=== PATIENT | female | born 1980 | race Caucasian/White ===

== ENCOUNTER 2016-09-01 15:48 | Emergency (ER) | payer OTHER ==
[~2016-09-01] VITALS: Ht 165.1 cm; Wt 76.2 kg
[~2016-09-01 15:48] MED LIST: ALBUTEROL0.09 MG/A2 IH; ATIVAN1 MG PO; BACTRIM DS 8001 TA1 PO; BIAXIN500 MG PO; CARAFATE1 G1 PO; HYDROCODONE BIT1 T11 PO; LEVOTHYROXINE0.05 MG PO; MOTRIN800 MG PO; PERCOCET 325 MG1 TA2 PO; PRILOSEC20 M1 PO; PRILOSEC40 MG PO; PYRIDIUM200 MG PO; SIMVASTATIN10 MG PO; TOPAMAX50 MG PO; TORADOL10 MG PO; ULTRAM50 MG PO; ZANTAC 150150 MG PO; ZYRTEC10 MG PO
[2016-09-01 15:57] VITALS: BP 122/73
[2016-09-01 16:19] LABS: BILIRUBIN NEGATIVE (NEGATIVE); BLOOD NEGATIVE (NEGATIVE); CLARITY CLEAR (CLEAR); COLOR YELLOW (YELLOW); GLUCOSE NEGATIVE (NEGATIVE); KETONE TRACE (NEGATIVE); LEUKO ESTERASE NEGATIVE (NEGATIVE); NITRITE NEGATIVE (NEGATIVE); PROTEIN NEGATIVE (NEGATIVE); SPECIFIC GRAVITY 1.015 (1.005-1.030); UROBILINOGEN 0.2 E.U./dl (0.2-1.0)
[2016-09-01 16:29] LABS: BACTERIA TRACE; EPITHELIAL CELLS 16-20; MUCOUS TRACE
[2016-09-01 16:30] LABS: RBC 0-2 rbc/hpf (0-2); URINE REFLEX COMMENT NO (NO)
[2016-09-01] MEDS ORDERED: PYRIDIUM100 MG PO (17:04)
[2016-09-01] MEDS ORDERED: MACROBID100 M1 PO (17:04)
[2016-09-01] MEDS ORDERED: DIFLUCAN150 MG PO (17:04)
== END 2016-09-01 17:24 | disposition home or self-care (01) ==
LOC: ED 15:48
PROVIDERS: Registered Nurse
DX: R30.0 Dysuria (principal); R03.0 Elevated blood-pressure reading, without diagnosis of hypertension; Z90.49 Acquired absence of other specified parts of digestive tract

== ENCOUNTER → 2017-01-02 | Outpatient (CLI) | payer OTHER ==
[~2017-01-02] MED LIST changes: +DIFLUCAN150 MG PO; +MACROBID100 M1 PO; +PYRIDIUM100 MG PO
[2017-01-03 22:05] LABS: LUPUS DRVVT 37.2 sec (0.0-47.0); PTT-LA 34.4 sec (0.0-43.6)
[2017-01-04 00:09] LABS: LUPUS REFLEX INTERPRETATION Comment: (.)
== END ==
LOC: LAB 14:24
PROVIDERS: Nurse Practitioner Family
DX: M79.609 Pain in unspecified limb (principal)

== ENCOUNTER → 2017-08-04 | Outpatient (CLI) | payer OTHER | END | disposition home or self-care (01) | LOC: RAD 15:39 | DX: M79.671 Pain in right foot (principal) ==

== ENCOUNTER → 2017-11-07 | Day surgery (SDC) | payer OTHER ==
[~2017-11-07] VITALS: Ht 165.1 cm; Wt 83.5 kg
[~2017-11-07] MED LIST changes: +DOXYCYCLINE100 M3 PO; +GAVISCON ES TA1 EACH PO; +GOOD NEIGHBOR150 M1 PO; +PROTONIX40 MG PO; +REGLAN5 MG PO
--- NOTE | ~2017-11-07 | O ---
[place], [place] OPERATIVE NOTE NAME: FREDY VINCENT UNIT #: [id number] ROOM: DOCTOR: DAVEY BUCIO MD BIRTHDATE: [birth year] DOS: 11/07/2017 HISTORY OF PRESENT ILLNESS: A 37-year-old patient who was presented with chief complaint of dyspepsia despite the fact that she is taking omeprazole 20 mg b.i.d. and ranitidine 150 mg 2 tablets. ALLERGIES: No known medication. PAST SURGICAL HISTORY: Cholecystectomy. PAST MEDICAL HISTORY: Reflux and migraine cephalalgia. SOCIAL HISTORY: Nonsmoker and social alcohol consumer. FAMILY HISTORY: Noncontributory. ALLERGIES: No known medication. PROCEDURE: Today's procedure part of investigation is panendoscopy plus biopsy. PREMEDICATION: Versed and Diprivan. SCOPE: Olympus forward-viewing gastroscope Q10 video. REPORT: After putting the patient in left lateral position and application of lubricant to the scope, the scope was introduced. Thereafter, under direct visualization, advanced through the length of esophagus without difficulty. Small hiatal hernia was noticed about 2 cm. Gastric pouch was entered. Gastritis seen. Duodenal bulb, second and third part within normal limit. Incompetency of the LES was also noticed. The patient extubated after antral biopsy for H. pylori. IMPRESSION: Incompetent LES, small hiatal hernia 2 cm, gastritis. PLAN AND DISCUSSION: I am going to switch her to Protonix 40 mg daily. We are going to adopt Reglan 5 mg a.c. dinner. Gaviscon 1 p.c. breakfast and 1 at bedtime. Antireflux measures with elevation of the head of the bed 10 inches all time and avoiding coffee and reassessment as an outpatient routinely with you in office, p.r.n. visit with us in [facility]. I thank you very much indeed, Ms. Sariah Blair. [place], [place] OPERATIVE NOTE NAME: FREDY VINCENT Ashley UNIT #: [id number] ROOM: DOCTOR: DAVEY BUCIO MD BIRTHDATE: [birth year] ADVEY BUCIO MD CM:OPRECORD:OPERATIVE NOTE [id number] SARIAH BUCIO MD 11/07/17 1743 interface
[2017-11-07 13:24] VITALS: BP 100/65
[2017-11-07 14:18] VITALS: BP 87/41
[2017-11-07 14:30] VITALS: BP 95/50
[2017-11-07 14:48] VITALS: BP 109/67
== END | disposition home or self-care (01) ==
LOC: SDC 11-04 12:30
DX: K29.50 Unspecified chronic gastritis without bleeding (principal); K44.9 Diaphragmatic hernia without obstruction or gangrene; K21.9 Gastro-esophageal reflux disease without esophagitis; G43.909 Migraine, unspecified, not intractable, without status migrainosus; F32.9 Major depressive disorder, single episode, unspecified; Z98.890 Other specified postprocedural states; Z79.899 Other long term (current) drug therapy; Z87.891 Personal history of nicotine dependence

== ENCOUNTER → 2018-03-23 | Outpatient (CLI) | payer OTHER | END | disposition home or self-care (01) | LOC: MRI 03-19 10:00 | DX: M54.16 Radiculopathy, lumbar region (principal); R53.83 Other fatigue ==

== ENCOUNTER → 2019-04-21 | Outpatient (CLI) | payer OTHER ==
[2019-04-21 12:54] LABS: BASO % 0.7 % (0.0-1.0); EOS # 0.1 10*3/uL (0.0-0.4); EOS % 3.1 % (1.0-4.0); HEMOGLOBIN 12.8 g/dl (12.0-16.0); LYMPH # 1.8 10*3/uL (1.3-4.4); LYMPH % 38.5 % (27.0-41.0); MEAN CELL VOLUME 86.4 fl (81.0-99.0); MEAN CORPUSCULAR HGB 29.1 pg (27.0-31.0); MEAN CORPUSCULAR HGB CONC 33.7 g/dl (33.0-37.0); MEAN PLATELET VOLUME 8.9 fl (9.6-12.3); MONO # 0.4 10*3/uL (0.1-1.0); MONO % 9.7 % (3.0-9.0); NEUT # 2.2 10*3/uL (2.3-7.9); PLATELET COUNT AUTOMATED 283 10*3/uL (130-400); RED CELL DISTRI WIDTH 13.4 % (0-14.5); WHITE BLOOD COUNT 4.6 10*3/uL (4.8-10.8)
[2019-04-21 13:23] LABS: ALBUMIN 3.7 gm/dl (3.1-4.5); ALKALINE PHOSPHATASE 67 U/L (45-117); BILIRUBIN, DIRECT < 0.1 mg/dL (0.0-0.2); BUN 11 mg/dl (7-24); CHLORIDE 109 mmol/L (98-107); CREATININE 0.87 mg/dL (0.55-1.02); POTASSIUM 3.9 mmol/L (3.5-5.1); SGOT/AST 13 IU/L (3-35); SGPT/ALT 21 U/L (12-78); SODIUM 140 mmol/L (136-145); TOTAL PROTEIN 6.8 gm/dL (6.4-8.2)
== END | disposition home or self-care (01) ==
LOC: LAB 12:31
PROVIDERS: Podiatrist Foot & Ankle Surgery
DX: B35.1 Tinea unguium (principal)

== ENCOUNTER → 2019-04-22 | Outpatient (CLI) | payer OTHER | END | disposition home or self-care (01) | LOC: US 01:53 | DX: N63.11 Unspecified lump in the right breast, upper outer quadrant (principal) ==

== ENCOUNTER → 2019-05-18 | Outpatient (CLI) | payer OTHER ==
[2019-05-18 16:37] LABS: BASO % 0.6 % (0.0-1.0); EOS # 0.2 10*3/uL (0.0-0.4); EOS % 3.4 % (1.0-4.0); HEMATOCRIT 34.6 % (37.0-47.0); HEMOGLOBIN 11.6 g/dl (12.0-16.0); LYMPH % 37.7 % (27.0-41.0); MEAN CELL VOLUME 86.5 fl (81.0-99.0); MEAN CORPUSCULAR HGB CONC 33.5 g/dl (33.0-37.0); MEAN PLATELET VOLUME 9.5 fl (9.6-12.3); MONO # 0.5 10*3/uL (0.1-1.0); MONO % 9.4 % (3.0-9.0); NEUT # 2.6 10*3/uL (2.3-7.9); NEUT % 48.9 % (47.0-73.0); PLATELET COUNT AUTOMATED 332 10*3/uL (130-400); RED CELL DISTRI WIDTH 13.2 % (0-14.5); WHITE BLOOD COUNT 5.2 10*3/uL (4.8-10.8)
[2019-05-18 17:01] LABS: ALBUMIN 3.5 gm/dl (3.1-4.5); ALKALINE PHOSPHATASE 67 U/L (45-117); BILIRUBIN, DIRECT < 0.1 mg/dL (0.0-0.2); SGOT/AST 17 IU/L (3-35); SGPT/ALT 20 U/L (12-78); TOTAL PROTEIN 6.8 gm/dL (6.4-8.2)
== END | disposition home or self-care (01) ==
LOC: LAB 15:57
PROVIDERS: Podiatrist Foot & Ankle Surgery
DX: B35.1 Tinea unguium (principal)

== ENCOUNTER 2019-05-27 18:45 | Emergency (ER) | payer OTHER ==
[~2019-05-27] VITALS: Ht 165.1 cm; Wt 89.8 kg
[2019-05-27 18:47] VITALS: BP 114/67
== END 2019-05-27 20:46 | disposition home or self-care (01) ==
LOC: ED 18:45
DX: S90.122A Contusion of left lesser toe(s) without damage to nail, initial encounter (principal); Z79.899 Other long term (current) drug therapy; Z79.2 Long term (current) use of antibiotics; Z90.49 Acquired absence of other specified parts of digestive tract; X50.1XXA Overexertion from prolonged static or awkward postures, initial encounter; Y93.89 Activity, other specified; Y92.89 Other specified places as the place of occurrence of the external cause; Y99.8 Other external cause status

== ENCOUNTER → 2020-01-13 | Outpatient (CLI) | payer OTHER | END | disposition home or self-care (01) | LOC: RAD 11:34 | DX: H92.09 Otalgia, unspecified ear (principal); R05 Cough; R53.83 Other fatigue ==

== ENCOUNTER 2020-02-22 12:39 | Emergency (ER) | payer OTHER ==
[~2020-02-22] VITALS: Ht 165.1 cm; Wt 88.5 kg
[2020-02-22 15:07] VITALS: BP 120/79
[2020-02-22] MEDS ORDERED: ATIVAN0.5 MG PO (15:11)
== END 2020-02-22 15:20 | disposition home or self-care (01) ==
LOC: ED 12:39
DX: F41.9 Anxiety disorder, unspecified (principal); K21.9 Gastro-esophageal reflux disease without esophagitis; G43.909 Migraine, unspecified, not intractable, without status migrainosus; E78.00 Pure hypercholesterolemia, unspecified; Z79.899 Other long term (current) drug therapy

== ENCOUNTER → 2020-03-22 | Outpatient (CLI) | payer OTHER ==
[~2020-03-22] MED LIST changes: +ATIVAN0.5 MG PO
== END | disposition home or self-care (01) ==
LOC: MRI 10:39
DX: F41.9 Anxiety disorder, unspecified (principal); G44.52 New daily persistent headache (NDPH)

== ENCOUNTER → 2020-04-06 | Outpatient (CLI) | payer OTHER | END | disposition home or self-care (01) | LOC: COVID19 01:02 | DX: R05 Cough (principal); R53.83 Other fatigue; R19.7 Diarrhea, unspecified; Z20.828 Contact with and (suspected) exposure to other viral communicable diseases ==

== ENCOUNTER 2020-04-22 16:51 | Emergency (ER) | payer OTHER ==
[~2020-04-22] VITALS: Wt 86.2 kg
[2020-04-22 16:55] VITALS: BP 127/83
[2020-04-22 18:12] LABS: BASO % 0.5 % (0.0-1.0); EOS # 0.1 10*3/uL (0.0-0.4); EOS % 1.1 % (1.0-4.0); HEMATOCRIT 38.3 % (37.0-47.0); LYMPH # 1.2 10*3/uL (1.3-4.4); LYMPH % 16.2 % (27.0-41.0); MEAN CELL VOLUME 85.7 fl (81.0-99.0); MEAN CORPUSCULAR HGB 28.4 pg (27.0-31.0); MEAN CORPUSCULAR HGB CONC 33.2 g/dl (33.0-37.0); MEAN PLATELET VOLUME 9.3 fl (9.6-12.3); MONO # 0.6 10*3/uL (0.1-1.0); NEUT # 5.6 10*3/uL (2.3-7.9); NEUT % 73.9 % (47.0-73.0); PLATELET COUNT AUTOMATED 318 10*3/uL (130-400); RED BLOOD COUNT 4.47 10*6/uL (4.10-5.10); RED CELL DISTRI WIDTH 14.7 % (0-14.5); WHITE BLOOD COUNT 7.6 10*3/uL (4.8-10.8)
[2020-04-22 18:29] LABS: ALBUMIN 3.6 gm/dl (3.1-4.5); ALKALINE PHOSPHATASE 71 U/L (45-117); BUN 14 mg/dl (7-24); CHLORIDE 107 mmol/L (98-107); CREATININE 1.03 mg/dL (0.55-1.02); POTASSIUM 3.9 mmol/L (3.5-5.1); SGOT/AST 14 IU/L (3-35); SGPT/ALT 26 U/L (12-78); SODIUM 141 mmol/L (136-145); TOTAL PROTEIN 7.3 gm/dL (6.4-8.2)
[2020-04-22 18:32] LABS: TROPONIN I < 0.015 ng/ml (<0.045)
[2020-04-22] MEDS ORDERED: NAPROXEN250 MG PO (19:01)
[2020-04-22] MEDS ORDERED: MIRALAX POWDER17 G1 PO (19:01)
[2020-04-22] MEDS ORDERED: TYLENOL325 M1 PO (19:01)
[2020-04-22 21:02] LABS: BILIRUBIN NEGATIVE; BLOOD NEGATIVE (NEGATIVE); CLARITY CLEAR (CLEAR); COLOR YELLOW (YELLOW); GLUCOSE NEGATIVE; KETONE NEGATIVE; LEUKO ESTERASE NEGATIVE (NEGATIVE); NITRITE NEGATIVE (NEGATIVE); PH 5.5 (4.5-8.0); RBC 0-2 rbc/hpf (0-2); SPECIFIC GRAVITY 1.015 (1.001-1.030); UROBILINOGEN 0.2 E.U./dl (0.0-1.0); WBC 0-2 wbc/hpf (0-5)
[2020-04-22 21:03] LABS: BACTERIA TRACE
== END 2020-04-22 21:20 | disposition home or self-care (01) ==
LOC: ED 16:51
PROVIDERS: Emergency Medicine
DX: S32.2XXA Fracture of coccyx, initial encounter for closed fracture (principal); R55 Syncope and collapse; K21.9 Gastro-esophageal reflux disease without esophagitis; G43.909 Migraine, unspecified, not intractable, without status migrainosus; Z79.899 Other long term (current) drug therapy; W18.39XA Other fall on same level, initial encounter; Y93.E1 Activity, personal bathing and showering; Y92.89 Other specified places as the place of occurrence of the external cause; Y99.8 Other external cause status

== ENCOUNTER 2022-04-12 16:30 | Emergency (ER) | payer OTHER ==
[~2022-04-12] VITALS: Ht 165.1 cm; Wt 80.7 kg
[~2022-04-12 16:30] MED LIST changes: +MIRALAX POWDER17 G1 PO; +NAPROXEN250 MG PO; +TYLENOL325 M1 PO
[2022-04-12 17:53] VITALS: BP 132/70
[2022-04-12] MEDS ORDERED: NAPROSYN500 MG PO (20:38)
[2022-04-12] MEDS ORDERED: ZANAFLEX4 MG PO (20:38)
== END 2022-04-12 21:11 | disposition home or self-care (01) ==
LOC: ED 16:30
DX: S30.0XXA Contusion of lower back and pelvis, initial encounter (principal); Z79.899 Other long term (current) drug therapy; Z98.51 Tubal ligation status; Z90.49 Acquired absence of other specified parts of digestive tract; W22.8XXA Striking against or struck by other objects, initial encounter; Y93.89 Activity, other specified; Y92.89 Other specified places as the place of occurrence of the external cause; Y99.8 Other external cause status

== ENCOUNTER → 2023-08-14 | Outpatient (CLI) | payer OTHER ==
[~2023-08-14] MED LIST changes: +NAPROSYN500 MG PO; +ZANAFLEX4 MG PO
== END | disposition home or self-care (01) ==
LOC: MRI 03:37
PROVIDERS: ATTEND Nurse Practitioner Family
DX: M51.17 Intervertebral disc disorders with radiculopathy, lumbosacral region (principal); L05.91 Pilonidal cyst without abscess